=== PATIENT | female | born 1980 | race African-American/Black ===

== ENCOUNTER 2018-12-26 02:17 | Emergency (ER) | payer OTHER ==
[~2018-12-26] VITALS: Ht 165.1 cm; Wt 59.0 kg
[~2018-12-26 02:17] MED LIST: LABE200T28 PO
[2018-12-26 02:30] VITALS: BP_SYST 164
[2018-12-26] MEDS ORDERED: NACL 0.9% 1,000 ML IV ONE (03:15)
[2018-12-26] MEDS ORDERED: ENALAPRILAT DIHYDRATE 1.25 MG/ML VIAL IVP ONE (03:15)
[2018-12-26 05:15] VITALS: BP_SYST 149
== END 2018-12-26 05:15 | disposition home or self-care (01) ==
LOC: SED 02:17
DX: I10 Essential (primary) hypertension (principal); R51 Headache
CPT/HCPCS: 96374; 99283; J7030

== ENCOUNTER 2021-11-04 00:53 | Inpatient (IN) | payer MEDICAID, OTHER ==
[~2021-11-04] VITALS: Ht 165.1 cm; Wt 58.7 kg
[~2021-11-04 00:53] MED LIST changes: -LABE200T28 PO; +LABE200T6 PO
[2021-11-04 00:58] VITALS: BP_SYST 111
[2021-11-04 02:25] LABS: HEMATOCRIT 34.6 % (36-48); MEAN CORPUSCULAR HEMOGLOBIN 33 pg (27-31); MEAN CORPUSCULAR HGB CONC 35 % (32-36); MEAN CORPUSCULAR VOLUME 94 fL (79.0-98.0); PLATELET COUNT (AUTO) 176 K/uL (130-430); RED BLOOD CELL COUNT(AUTO) 3.67 MIL/uL (4.2-6.2); RED CELL DISTRIBUTION WIDTH 13.3 % (9.0-15.0); WHITE BLOOD COUNT (AUTO) 13.2 K/uL (4.8-10.8)
[2021-11-04] MEDS ORDERED: MORPHINE 4 MG INJ. 4 MG/ML VIAL IVP ONE (02:45)
[2021-11-04] MEDS ORDERED: ONDANSETRON HCL 4 MG/2 ML VIAL IVP ONE (02:45)
[2021-11-04 02:46] LABS: BILIRUBIN,URINE NEGATIVE (NEGATIVE); COLOR,URINE YELLOW (YELLOW); GLUCOSE,URINE NEGATIVE (NEGATIVE); KETONES,URINE 1+ (NEGATIVE); LEUKOCYTE ESTERASE ,URINE 1+ (NEGATIVE); NITRITE, URINE POSITIVE (NEGATIVE); PROTEIN URINE 2+ (NEGATIVE)
[2021-11-04 02:47] LABS: BLOOD, URINE TRACE (NEGATIVE); CLARITY/URINE HAZY (CLEAR)
[2021-11-04 03:00] LABS: WBC,URINE 20-50 /HPF (0-3)
[2021-11-04 03:01] LABS: BACTERIA,URINE MODERATE /HPF (None Seen)
[2021-11-04 03:05] LABS: HCG,QUAL RESULT NEGATIVE (NEGATIVE)
[2021-11-04 03:12] LABS: ALBUMIN 2.4 g/dL (3.4-4.8); CREATININE 0.79 mg/dL (0.55-1.30); TOTAL BILIRUBIN 0.6 mg/dL (0.0-1.0)
[2021-11-04 03:23] LABS: BASOPHILS % (AUTO) 0.3 % (0.0-2.0); EOSINOPHILS % (AUTO) 0.2 % (0.0-4.0); LYMPHOCYTES % (AUTO) 5.9 % (20.5-51.5); MONOCYTES % (AUTO) 17.5 % (1.7-9.3); NEUTROPHILS % (AUTO) 76.1 % (40.0-70.0)
[2021-11-04 03:24] LABS: LYMPHOCYTES # (AUTO) 0.8 K/uL (1.0-5.5); LYMPHOCYTES % (MANUAL) 3 % (20-46); MONOCYTES # (AUTO) 2.3 K/uL (0.0-1.0); MONOCYTES % (MANUAL) 15 % (0-11)
[2021-11-04 03:25] LABS: BASOPHILS % (MANUAL) 0 % (0-2); EOSINOPHILS % (MANUAL) 0 % (0-7)
[2021-11-04] MEDS ORDERED: cefTRIAXone 1 GM IVPB PREMIX 50 ML IV ONE (03:30)
[2021-11-04 03:46] LABS: CALCIUM 6.6 mg/dL (8.4-11.0)
[2021-11-04] MEDS ORDERED: CALCIUM GLUCONATE 2 GM in NS 100 ML IV ONE (04:00)
[2021-11-04] MEDS ORDERED: CALCIUM GLUCONATE 1 GM/10 ML VIAL ONE (04:13)
[2021-11-04] MEDS ORDERED: HALOPERIDOL LACTATE 5 MG/ML VIAL IVP ONE (04:15)
[2021-11-04 04:42] LABS: POTASSIUM 2.4 mmol/L (3.5-5.1)
[2021-11-04] MEDS ORDERED: POTASSIUM CHLORIDE 20 MEQ TAB.PRT.SR PO ONE ×2 (05:00)
[2021-11-04] MEDS ORDERED: KCL 20 mEq in 100 mL (PREMIX) 100 ML IV ONE (05:00)
[2021-11-04] MEDS ORDERED: MUPIROCIN 2% TOPICAL OINTMENT 22 GM NS PRN (08:00)
[2021-11-04] MEDS ORDERED: MORPHINE 2 MG/ML INJ. SYRINGE IVP PRN (08:00)
[2021-11-04] MEDS ORDERED: ONDANSETRON HCL 4 MG/2 ML VIAL IVP PRN (08:00)
[2021-11-04] MEDS ORDERED: LORazepam 2 MG/ML VIAL IVP PRN (08:00)
[2021-11-04] MEDS ORDERED: MAGNESIUM SULFATE 50 ML IV PRN (08:00)
[2021-11-04] MEDS ORDERED: ACETAMINOPHEN 325 MG TABLET PO PRN (08:00)
[2021-11-04] MEDS ORDERED: ZOLPIDEM TARTRATE 5 MG TABLET PO PRN (08:00)
[2021-11-04] MEDS ORDERED: DOCUSATE SODIUM 100 MG CAPSULE PO PRN (08:00)
[2021-11-04] MEDS ORDERED: POTASSIUM CHLORIDE 20 MEQ TAB.PRT.SR PO PRN (08:00)
[2021-11-04] MEDS: METOPROLOL TARTRATE 25 MG TABLET PO SCH ×2 (09:26→20:09)
[2021-11-04] MEDS: D5NS 1,000 ML IV SCH ×2 (09:27→16:08)
[2021-11-04 09:38] LABS: BARBITURATE, URINE NEGATIVE (NEG <=200); BENZODIAZEPINE, URINE NEGATIVE (NEG <=150); CANNABINOID, URINE POSITIVE (NEG <=50); COCAINE, URINE NEGATIVE (NEG <=150); METHAMPHETAMINES SCREEN,URINE NEGATIVE (NEG <=500); OPIATE, URINE POSITIVE (NEG <=100); PHENCYCLIDINE SCREEN,URINE NEGATIVE (NEG <=25); UR TRICYCLIC ANTIDEPRESSANTS NEGATIVE (NEG <=300); URINE AMPHETAMINE NEGATIVE (NEG <=500); URINE METHADONE NEGATIVE (NEG <=200); URINE OXYCODONE SCREEN NEGATIVE (NEG <=100); URINE PROPOXYPHENE SCREEN NEGATIVE (NEG <=300)
[2021-11-04 10:00] VITALS: BP_SYST 131
[2021-11-04] MEDS: MORPHINE 2 MG/ML INJ. SYRINGE IVP PRN ×2 (11:03→20:09)
[2021-11-04 12:00] VITALS: BP_SYST 126
[2021-11-04 16:00] VITALS: BP_SYST 133
[2021-11-04 20:00] VITALS: BP_SYST 149
[2021-11-05] VITALS: BP_SYST 143
[2021-11-05 00:02] VITALS: BP_SYST 143
[2021-11-05] MEDS: D5NS 1,000 ML IV SCH (05:45)
[2021-11-05 06:21] LABS: BASOPHILS % (AUTO) 0.3 % (0.0-2.0); EOSINOPHILS % (AUTO) 0.1 % (0.0-4.0); HEMATOCRIT 32.5 % (36-48); HEMOGLOBIN 11.1 g/dL (12.0-16.0); LYMPHOCYTES # (AUTO) 1.1 K/uL (1.0-5.5); LYMPHOCYTES % (AUTO) 9.4 % (20.5-51.5); MEAN CORPUSCULAR HEMOGLOBIN 33 pg (27-31); MEAN CORPUSCULAR HGB CONC 34 % (32-36); MEAN CORPUSCULAR VOLUME 95 fL (79.0-98.0); MONOCYTES # (AUTO) 2.5 K/uL (0.0-1.0); MONOCYTES % (AUTO) 20.5 % (1.7-9.3); NEUTROPHILS # (AUTO) 8.5 K/uL (1.8-7.7); PLATELET COUNT (AUTO) 150 K/uL (130-430); RED BLOOD CELL COUNT(AUTO) 3.42 MIL/uL (4.2-6.2); RED CELL DISTRIBUTION WIDTH 13.7 % (9.0-15.0); WHITE BLOOD COUNT (AUTO) 12.1 K/uL (4.8-10.8)
[2021-11-05 06:43] LABS: ANION GAP 8 (5-15); CHLORIDE 102 mmol/L (98-107); CREATININE 0.63 mg/dL (0.55-1.30); GLUCOSE 110 mg/dL (70-99); SODIUM SERUM 136 mmol/L (136-145); UREA NITROGEN, BLOOD 6 mg/dL (8-21)
[2021-11-05 07:43] LABS: GFR AFRICAN AMERICAN 135 mL/min (>90)
[2021-11-05 07:44] LABS: CALCIUM 6.4 mg/dL (8.4-11.0); POTASSIUM 2.6 mmol/L (3.5-5.1)
[2021-11-05 08:00] VITALS: BP_SYST 149
[2021-11-05] MEDS ORDERED: MAGN400T10 PO (08:00)
[2021-11-05] MEDS ORDERED: POTASSIUM CHLORIDE 20 MEQ TAB.PRT.SR PO ONE (08:00)
[2021-11-05] MEDS ORDERED: POTA-197 PO (08:00)
[2021-11-05] MEDS ORDERED: MAGNESIUM SULFATE 4 GM in D5W 250 ML IV ONE (08:00)
[2021-11-05] MEDS ORDERED: LEVO500T90 PO (08:00)
[2021-11-05] MEDS: METOPROLOL TARTRATE 25 MG TABLET PO SCH (08:35)
[2021-11-05] MEDS: MORPHINE 2 MG/ML INJ. SYRINGE IVP PRN (08:57)
[2021-11-05] MEDS ORDERED: CALCIUM CARBONATE 500 MG/ TAB.CHEW PO SCH (09:00)
[2021-11-05] MEDS ORDERED: CALC650T29 PO (10:21)
[2021-11-05 12:00] VITALS: BP_SYST 138
[2021-11-05 12:57] LABS: NEUTROPHILS % (AUTO) 69.7 % (40.0-70.0)
[2021-11-05 15:17] LABS: CREATININE 0.53 mg/dL (0.55-1.30)
[2021-11-05 15:35] LABS: CALCIUM 6.7 mg/dL (8.4-11.0); POTASSIUM 2.9 mmol/L (3.5-5.1)
[2021-11-05 16:00] VITALS: BP_SYST 142
[2021-11-05 16:30] VITALS: BP_SYST 132
== END 2021-11-05 17:10 | disposition home or self-care (01) | DRG 249 ==
LOC: SED 00:53 → SMU 07:58
PROVIDERS: ADMIT General Practice; ATTEND General Practice
DX: K52.9 Noninfective gastroenteritis and colitis, unspecified (principal); E44.0 Moderate protein-calorie malnutrition; E83.51 Hypocalcemia; E87.1 Hypo-osmolality and hyponatremia; N39.0 Urinary tract infection, site not specified; E87.6 Hypokalemia; Z20.822 Contact with and (suspected) exposure to COVID-19; I10 Essential (primary) hypertension; F17.210 Nicotine dependence, cigarettes, uncomplicated; F12.20 Cannabis dependence, uncomplicated; Z68.21 Body mass index [BMI] 21.0-21.9, adult; B96.20 Unspecified Escherichia coli [E. coli] as the cause of diseases classified elsewhere
CPT/HCPCS: 36415; 71045; 76376; 76856-TC; 80048; 80053; 80307; 81000; 83605; 83690; 83735; 84484; 84703; 85007; 85025; 85027; 87086; 93005; 96374; 96375; 99285; J0610; J0696; J1630; J2270; J2405; J3475; J3480; J7060

== ENCOUNTER 2022-06-27 16:42 | Emergency (ER) | payer MEDICAID ==
[~2022-06-27] VITALS: Ht 165.1 cm; Wt 54.4 kg
[2022-06-27 16:42] VITALS: BP_SYST 196
[~2022-06-27 16:42] MED LIST changes: +CALC650T29 PO; -LABE200T6 PO; +LABE200T9 PO; +LEVO-62 PO; +MAGN400T10 PO; +POTA-197 PO
--- NOTE | 2022-06-27 16:45 | NUR ---
BROUGHT IN BY [facility] AND TRIAGED. AWAITING ER BED AVAILABILITY
--- NOTE | 2022-06-27 17:00 | NUR ---
Dr. Valdez at bedside.
[2022-06-27 17:15] LABS: BASOPHILS % (AUTO) 0.5 % (0.0-2.0); EOSINOPHILS % (AUTO) 0.1 % (0.0-4.0); HEMATOCRIT 31.7 % (36-48); LYMPHOCYTES # (AUTO) 1.2 K/uL (1.0-5.5); LYMPHOCYTES % (AUTO) 22.8 % (20.5-51.5); MEAN CORPUSCULAR HEMOGLOBIN 33 pg (27-31); MEAN CORPUSCULAR HGB CONC 35 % (32-36); MEAN CORPUSCULAR VOLUME 94 fL (79.0-98.0); MONOCYTES # (AUTO) 0.6 K/uL (0.0-1.0); MONOCYTES % (AUTO) 11.1 % (1.7-9.3); NEUTROPHILS # (AUTO) 3.5 K/uL (1.8-7.7); NEUTROPHILS % (AUTO) 65.5 % (40.0-70.0); PLATELET COUNT (AUTO) 309 K/uL (130-430); RED BLOOD CELL COUNT(AUTO) 3.38 MIL/uL (4.2-6.2); WHITE BLOOD COUNT (AUTO) 5.4 K/uL (4.8-10.8)
--- NOTE | 2022-06-27 17:17 | NUR ---
Patient BIB ambulance from home. Chief Complaint Chest pain rated at 6/10. Patient a&o x4 states hx of HTN but does not take medicine nor check bps regularily. Patient placed in bed one on monitor and bed rails up. EMT at bedside performing EKG. Patient stable.
[2022-06-27] MEDS ORDERED: cloNIDine HCL 0.1 MG TABLET PO ONE (17:30)
[2022-06-27 17:31] LABS: ALANINE AMINOTRANSFERASE 59 U/L (12-78); ALBUMIN 3.3 g/dL (3.4-4.8); ASPARTATE AMINOTRANSFERASE 264 U/L (10-37); CALCIUM 8.1 mg/dL (8.4-11.0); CHLORIDE 93 mmol/L (98-107); CREATININE 0.89 mg/dL (0.55-1.30); GFR AFRICAN AMERICAN 90 mL/min (>90); GLUCOSE 177 mg/dL (70-99); TOTAL BILIRUBIN 0.5 mg/dL (0.0-1.0); UREA NITROGEN, BLOOD 9 mg/dL (8-21)
[2022-06-27 17:34] LABS: ANION GAP 14 (5-15)
[2022-06-27] MEDS ORDERED: POTASSIUM CHLORIDE 20 MEQ/PKT PACKET PO ONE ×2 (18:00→18:30)
--- NOTE | 2022-06-27 18:26 | NUR ---
CATAPRES 0.3MG PO GIVEN FOR SBP 196. KCL 40MEQ PO GIVEN FOR K+=2.7.
[2022-06-27] MEDS ORDERED: POTASSIUM CHLORIDE 40 MEQ in NS 250 ML IV ONE (18:30)
[2022-06-27] MEDS ORDERED: KCL 20 mEq in 100 mL (PREMIX) 100 ML IV ONE (18:45)
--- NOTE | 2022-06-27 19:08 | NUR ---
KCL IVPB 20 MEQ FIRST OF TWO AND KCL 40MEQ PO GIVEN FOR K+= 2.7.
--- NOTE | 2022-06-27 19:09 | NUR ---
DR. ISSA AT BEDSIDE TO ASSESS PT.
--- NOTE | 2022-06-27 19:21 | NUR ---
ENDORSED ALL CARE TO MIKE PATEL. ALL QUESTIONS AND CONCERNS ADDRESSED.
[2022-06-27] MEDS ORDERED: POTA-197 PO (20:02)
[2022-06-27] MEDS ORDERED: MAGN400T10 PO (20:02)
[2022-06-27] MEDS ORDERED: NAPR-1172 PO (20:02)
[2022-06-27] MEDS ORDERED: hydrALAZINE HCL 20 MG/ML VIAL IVP ONE (20:15)
[2022-06-27 21:01] VITALS: BP_SYST 142
== END 2022-06-27 21:01 | disposition home or self-care (01) ==
LOC: SED 16:42
DX: R07.9 Chest pain, unspecified (principal); R00.0 Tachycardia, unspecified; R05.9 Cough, unspecified; I10 Essential (primary) hypertension; Z79.899 Other long term (current) drug therapy
CPT/HCPCS: 99285; 96365; 71045; 80053; 85025; 84484; 36415; 93005; J3480; J7050

== ENCOUNTER 2022-08-15 22:47 | Emergency (ER) | payer MEDICAID ==
[~2022-08-15] VITALS: Ht 165.1 cm; Wt 54.4 kg
[~2022-08-15 22:47] MED LIST changes: +NAPR-1172 PO
[2022-08-15 23:00] VITALS: BP_SYST 95
--- NOTE | 2022-08-16 00:02 | NUR ---
Patient to ER bed 3 to gown for evaluation. Side rails up. Report given to RYAN MCKEON.
--- NOTE | 2022-08-16 00:12 | NUR ---
PATIENT BROUGHT IN COMPLAINING OF HYPOTENSION WITH WEAKNESS AND DIZZINESS. PAIN 4/10 HEAD.
--- NOTE | 2022-08-16 00:22 | NUR ---
# 22 gauge angiocath placed to RAC. Use of asceptic technique. Opsite placed over site. Blood return noted. Blood for lab drawn from site. Flushed with 10 cc of normal saline. No evidence of infiltration noted. Patient tolerated well.
[2022-08-16] MEDS ORDERED: MAG-AL HYDROX/SIMETH 30 ML UDC PO ONE (00:30)
[2022-08-16 00:36] LABS: BASOPHILS # (AUTO) 0.1 K/uL (0.0-0.2); EOSINOPHILS % (AUTO) 0.6 % (0.0-4.0); HEMATOCRIT 39.5 % (36-48); HEMOGLOBIN 13.3 g/dL (12.0-16.0); LYMPHOCYTES # (AUTO) 1.9 K/uL (1.0-5.5); LYMPHOCYTES % (AUTO) 31.1 % (20.5-51.5); MEAN CORPUSCULAR HEMOGLOBIN 34 pg (27-31); MEAN CORPUSCULAR HGB CONC 34 % (32-36); MEAN CORPUSCULAR VOLUME 100 fL (79.0-98.0); MONOCYTES # (AUTO) 0.6 K/uL (0.0-1.0); MONOCYTES % (AUTO) 9.3 % (1.7-9.3); NEUTROPHILS # (AUTO) 3.5 K/uL (1.8-7.7); PLATELET COUNT (AUTO) 254 K/uL (130-430); RED BLOOD CELL COUNT(AUTO) 3.94 MIL/uL (4.2-6.2); WHITE BLOOD COUNT (AUTO) 6.1 K/uL (4.8-10.8)
[2022-08-16 01:09] LABS: ALANINE AMINOTRANSFERASE 21 U/L (12-78); ALBUMIN 4.1 g/dL (3.4-4.8); ANION GAP 16 (5-15); ASPARTATE AMINOTRANSFERASE 31 U/L (10-37); CALCIUM 7.9 mg/dL (8.4-11.0); CHLORIDE 96 mmol/L (98-107); CREATININE 1.95 mg/dL (0.55-1.30); GFR AFRICAN AMERICAN 36 mL/min (>90); GLUCOSE 86 mg/dL (70-99); PHOSPHORUS 3.4 mg/dL (2.7-4.5); TOTAL BILIRUBIN 0.9 mg/dL (0.0-1.0); UREA NITROGEN, BLOOD 25 mg/dL (8-21)
[2022-08-16] MEDS ORDERED: POTASSIUM CHLORIDE 20 MEQ/PKT PACKET PO ONE (01:30)
[2022-08-16] MEDS ORDERED: MAGNESIUM SULFATE 50 ML IV ONE (01:30)
[2022-08-16] MEDS ORDERED: NACL 0.9% 1,000 ML IV ONE ×2 (01:30)
[2022-08-16] MEDS ORDERED: KCL 20 mEq in 100 mL (PREMIX) 100 ML IV ONE (01:30)
--- NOTE | 2022-08-16 02:08 | NUR ---
PATIENT AMBULATED TO RESTROOM. STEADY GAIT. NO ASSISTANCE REQUIRED AT THIS TIME
--- NOTE | 2022-08-16 02:16 | NUR ---
PATIENT RETURNED FROM RESTROOM. PLACED BACK ON CONSERVATION TECHNICIAN.
--- NOTE | 2022-08-16 03:20 | NUR ---
REPORT GIVEN MIKE BUSH FOR CONTINUATION OF CARE
--- NOTE | 2022-08-16 03:24 | NUR ---
Report received from MIKE Zapata for continuity of care. Patient in stable condition.
[2022-08-16] MEDS ORDERED: POTASSIUM CHLORIDE 20 MEQ TAB.PRT.SR PO ONE (03:30)
[2022-08-16 03:48] VITALS: BP_SYST 97
--- NOTE | 2022-08-16 04:07 | NUR ---
pATIENT TOOK MEDICATION ORDERED.
--- NOTE | 2022-08-16 06:23 | NUR ---
Patient given written and verbal discharge instructions and verbalizes understanding. ER MD discussed with patient the results and treatment provided. Patient in stable condition. ID arm band removed. IV catheter removed intact and dressing applied, no active bleeding. Patient educated on pain management and to follow up with PMD. Pain Scale . Opportunity for questions provided and answered. Medication side effect fact sheet provided.
== END 2022-08-16 06:22 | disposition home or self-care (01) ==
LOC: SED 22:47
DX: E86.0 Dehydration (principal); N17.9 Acute kidney failure, unspecified; E87.6 Hypokalemia; E83.42 Hypomagnesemia; I10 Essential (primary) hypertension; R42 Dizziness and giddiness; Z79.899 Other long term (current) drug therapy
CPT/HCPCS: 99284; 80053; 83735; 84100; 85025; 84484; 36415; 93005; 96365; 96361; 96366; J3475; J7030

== ENCOUNTER 2023-06-17 19:22 | Inpatient (IN) | payer MEDICAID ==
[~2023-06-17] VITALS: Ht 165.1 cm; Wt 52.2 kg
[2023-06-17 19:40] VITALS: BP_SYST 135; PULSE 129; RESP 20; TEMP 98.9; O2SAT 100
[2023-06-17 22:00] LABS: HEMATOCRIT 22.7 % (36-48); HEMOGLOBIN 7.9 g/dL (12.0-16.0); MEAN CORPUSCULAR HEMOGLOBIN 35 pg (27-31); MEAN CORPUSCULAR HGB CONC 35 % (32-36); MEAN CORPUSCULAR VOLUME 99 fL (79.0-98.0); RED BLOOD CELL COUNT(AUTO) 2.29 MIL/uL (4.2-6.2); RED CELL DISTRIBUTION WIDTH 14.6 % (9.0-15.0); WHITE BLOOD COUNT (AUTO) 4.8 K/uL (4.8-10.8)
[2023-06-17 22:07] LABS: ALBUMIN 3.6 g/dL (3.4-4.8); CALCIUM 7.4 mg/dL (8.4-11.0); CREATININE 0.81 mg/dL (0.55-1.30); TOTAL BILIRUBIN 0.4 mg/dL (0.0-1.0); TOTAL PROTEIN, SERUM 6.9 g/dL (6.4-8.3)
[2023-06-17 22:11] LABS: POTASSIUM 2.9 mmol/L (3.5-5.1)
[2023-06-17 22:13] LABS: PLATELET COUNT (AUTO) 44 K/uL (130-430)
[2023-06-17] MEDS: NACL 0.9% 1,000 ML IV ONE (22:16)
[2023-06-17 22:26] LABS: ANISOCYTOSIS 1+; BAND % (MANUAL) 0 % (0-6); BASOPHILS % (MANUAL) 0 % (0-2); EOSINOPHILS % (MANUAL) 0 % (0-7); LYMPHOCYTES % (MANUAL) 55 % (20-46); MONOCYTES % (MANUAL) 6 % (0-11); PLATELET ESTIMATE DECREASED (ADEQUATE); POLYCHROMASIA 1+
[2023-06-17 22:27] LABS: OVALOCYTES FEW; STOMATOCYTES MANY; TARGET CELLS MODERATE; TEAR DROP CELLS FEW
[2023-06-17] MEDS: MORPHINE 4 MG INJ. 4 MG/ML VIAL IVP ONE (23:32)
[2023-06-17] MEDS: KCL 20 mEq in 100 mL (PREMIX) 100 ML IV ONE (23:37)
[2023-06-18] VITALS (7 sets, daily range): BP systolic 151–165; PULSE 103–127; RESP 15–16; TEMP 98.4–99; O2SAT 98–100
[2023-06-18 00:10] LABS: BILIRUBIN,URINE NEGATIVE (NEGATIVE); BLOOD, URINE 1+ (NEGATIVE); COLOR,URINE YELLOW (YELLOW); GLUCOSE,URINE NEGATIVE (NEGATIVE); KETONES,URINE NEGATIVE (NEGATIVE); LEUKOCYTE ESTERASE ,URINE NEGATIVE (NEGATIVE); NITRITE, URINE NEGATIVE (NEGATIVE); PH,URINE 6.5 (5.0-8.0); PROTEIN URINE NEGATIVE (NEGATIVE); UROBILINOGEN,URINE 0.2 (0.2-1.0)
[2023-06-18] MEDS: NACL 0.9% 1,000 ML IV ONE (00:10)
[2023-06-18 00:45] LABS: CLARITY/URINE HAZY (CLEAR)
[2023-06-18 00:46] LABS: BACTERIA,URINE None Seen /HPF (None Seen); WBC,URINE 0-3 /HPF (0-3)
[2023-06-18] MEDS: metroNIDAZOLE 500 mg/NS 100 ML IV ONE (02:00)
[2023-06-18] MEDS: DIAZEPAM 10 MG/2 ML DISP.SYRIN IVP ONE (02:21)
[2023-06-18] MEDS: cefTRIAXone 1 GM IVPB PREMIX 50 ML IV ONE (03:09)
[2023-06-18] MEDS: LORazepam 2 MG/ML VIAL IVP ONE (03:09)
[2023-06-18] MEDS ORDERED: LOSA50TA28 PO (03:25)
[2023-06-18] MEDS ORDERED: AMLO5TAB92 PO (03:25)
[2023-06-18] MEDS ORDERED: ROSU20TA73 PO (03:25)
[2023-06-18 03:26] LABS: INR 1.2 (0.8-1.2); PROTHROMBIN TIME 11.9 SECS (9.5-12.5)
[2023-06-18] MEDS: D5/0.45 NS 1,000 ML IV ONE (05:16)
[2023-06-18] MEDS ORDERED: NALOXONE HCL 0.4 MG/ML AMP (NARCAN) IVP PRN ×2 (07:15)
[2023-06-18] MEDS: PANTOPRAZOLE SODIUM 40 MG/VIAL (PROTONIX) IVP SCH (08:59)
[2023-06-18] MEDS: hydrALAZINE HCL 20 MG/ML VIAL IVP PRN (09:00)
[2023-06-18] MEDS: HYDROcodone/ACETAMIN 10-325 MG TAB PO PRN (10:24)
[2023-06-18] MEDS ORDERED: LORazepam 2 MG/ML VIAL IVP PRN (11:45)
[2023-06-18] MEDS ORDERED: CALCIUM CARBONATE 650 MG TABLET PO SCH (11:45)
[2023-06-18] MEDS ORDERED: ONDANSETRON HCL 4 MG/2 ML VIAL IVP PRN (11:45)
[2023-06-18] MEDS: POTASSIUM CHLORIDE 20 MEQ TABLET.ER PO ONE (13:41)
[2023-06-18] MEDS: amLODIPine BESYLATE 5 MG TABLET PO ONE (13:43)
[2023-06-18] MEDS: CALCIUM 500 MG/TAB PO ONE (13:43)
[2023-06-18] MEDS: BISACODYL 5 MG TABLET.DR (DULCOLAX) PO ONE (18:45)
[2023-06-18] MEDS: CALCIUM 500 MG/TAB PO SCH (22:27)
[2023-06-18] MEDS: ATORVASTATIN 20 MG TABLET PO SCH (22:27)
[2023-06-18] MEDS: LOSARTAN POTASSIUM 50 MG TABLET (COZAAR) PO SCH (22:28)
[2023-06-18] MEDS: LABETALOL HCL 100 MG TABLET PO SCH (22:28)
[2023-06-18] MEDS: MAGNESIUM OXIDE 400 MG TABLET PO SCH (22:28)
[2023-06-19 00:48] VITALS: BP_SYST 113; PULSE 107; RESP 16; TEMP 98.6; O2SAT 100
[2023-06-19 05:31] LABS: BASOPHILS % (AUTO) 0.2 % (0.0-2.0); EOSINOPHILS % (AUTO) 0.5 % (0.0-4.0); LYMPHOCYTES # (AUTO) 1.7 K/uL (1.0-5.5); LYMPHOCYTES % (AUTO) 45.9 % (20.5-51.5); MEAN CORPUSCULAR HEMOGLOBIN 34 pg (27-31); MEAN CORPUSCULAR HGB CONC 34 % (32-36); MEAN CORPUSCULAR VOLUME 100 fL (79.0-98.0); MONOCYTES # (AUTO) 0.3 K/uL (0.0-1.0); MONOCYTES % (AUTO) 6.7 % (1.7-9.3); NEUTROPHILS # (AUTO) 1.8 K/uL (1.8-7.7); NEUTROPHILS % (AUTO) 46.7 % (40.0-70.0); RED BLOOD CELL COUNT(AUTO) 2.06 MIL/uL (4.2-6.2); RED CELL DISTRIBUTION WIDTH 14.6 % (9.0-15.0); WHITE BLOOD COUNT (AUTO) 3.8 K/uL (4.8-10.8)
[2023-06-19 05:55] LABS: ALANINE AMINOTRANSFERASE 11 U/L (12-78); ALBUMIN 3.1 g/dL (3.4-4.8); ANION GAP 16 (5-15); ASPARTATE AMINOTRANSFERASE 35 U/L (10-37); CARBON DIOXIDE 23 mmol/L (23-29); CHLORIDE 98 mmol/L (98-107); CREATININE 0.66 mg/dL (0.55-1.30); GFR AFRICAN AMERICAN 126 mL/min (>90); GLUCOSE 105 mg/dL (74-106); PHOSPHORUS 4.4 mg/dL (2.7-4.5); SODIUM SERUM 137 mmol/L (136-145); TOTAL BILIRUBIN 0.8 mg/dL (0.0-1.0); TOTAL PROTEIN, SERUM 5.9 g/dL (6.4-8.3); UREA NITROGEN, BLOOD 3 mg/dL (8-21)
[2023-06-19 06:05] LABS: HEMATOCRIT 20.5 % (36-48)
[2023-06-19 06:06] LABS: PLATELET COUNT (AUTO) 36 K/uL (130-430)
[2023-06-19 06:31] LABS: GFR NON AFRICAN-AMERICAN 104 mL/min (>90)
[2023-06-19 06:34] LABS: CALCIUM 6.6 mg/dL (8.4-11.0); POTASSIUM 2.5 mmol/L (3.5-5.1)
[2023-06-19] MEDS ORDERED: CALCIUM GLUCONATE 1 GM/10 ML VIAL IVP ONE (07:00)
[2023-06-19 07:47] VITALS: BP_SYST 113; PULSE 107; RESP 16; TEMP 97.6; O2SAT 99
[2023-06-19 08:00] VITALS: O2SAT 95
[2023-06-19] MEDS: amLODIPine BESYLATE 5 MG TABLET PO SCH (08:26)
[2023-06-19] MEDS: POTASSIUM CHLORIDE 20 MEQ TABLET.ER PO SCH (08:26)
[2023-06-19] MEDS: CALCIUM GLUC 2 GM/100ML-NACL 100 ML IV ONE (08:38)
[2023-06-19] MEDS: MAGNESIUM SULFATE 50 ML IV ONE (09:52)
[2023-06-19] MEDS: POTASSIUM CHLORIDE 40 MEQ in NS 250 ML IV ONE (10:56)
[2023-06-19 11:51] VITALS: BP_SYST 136; PULSE 102; RESP 16; TEMP 98.6; O2SAT 100
[2023-06-19] MEDS: SIMETHICONE 40 MG/0.6 ML ML ONE (15:16)
[2023-06-19] MEDS: MEPERIDINE 100 MG INJ. 100 MG/ML VIAL ONE (15:21)
[2023-06-19] MEDS: MIDAZOLAM HCL 5 MG/5 ML VIAL ONE (15:21)
[2023-06-19] MEDS: DIPHENHYDRAMINE INJ 50 MG/ML VIAL ONE (15:29)
[2023-06-19 16:25] VITALS: BP_SYST 139; PULSE 100; RESP 16; TEMP 97.5; O2SAT 100
[2023-06-19] MEDS: ACETAMINOPHEN 325 MG TABLET PO PRN (17:37)
[2023-06-19 20:38] VITALS: BP_SYST 112; PULSE 119; RESP 16; TEMP 99.5; O2SAT 99
[2023-06-19] MEDS: HYDROcodone/ACETAMIN 5-325 MG TAB (NORCO/ VICODIN) PO PRN (21:43)
[2023-06-20 00:15] VITALS: BP_SYST 104; PULSE 97; RESP 16; TEMP 98.7; O2SAT 99
[2023-06-20 04:03] LABS: BASOPHILS % (AUTO) 0.4 % (0.0-2.0); EOSINOPHILS % (AUTO) 0.4 % (0.0-4.0); HEMATOCRIT 22.1 % (36-48); HEMOGLOBIN 7.5 g/dL (12.0-16.0); LYMPHOCYTES # (AUTO) 2.1 K/uL (1.0-5.5); LYMPHOCYTES % (AUTO) 47.7 % (20.5-51.5); MEAN CORPUSCULAR HEMOGLOBIN 34 pg (27-31); MEAN CORPUSCULAR HGB CONC 34 % (32-36); MEAN CORPUSCULAR VOLUME 100 fL (79.0-98.0); MONOCYTES # (AUTO) 0.2 K/uL (0.0-1.0); MONOCYTES % (AUTO) 5.7 % (1.7-9.3); NEUTROPHILS % (AUTO) 45.8 % (40.0-70.0); RED BLOOD CELL COUNT(AUTO) 2.21 MIL/uL (4.2-6.2); RED CELL DISTRIBUTION WIDTH 14.7 % (9.0-15.0); WHITE BLOOD COUNT (AUTO) 4.4 K/uL (4.8-10.8)
[2023-06-20 04:04] VITALS: BP_SYST 107; PULSE 185; RESP 20; TEMP 99; O2SAT 99
[2023-06-20] MEDS: ADENOSINE 6MG/2ML VIAL ONE (04:07)
[2023-06-20] MEDS: dilTIAZem HCL IVP 5 MG/ML VIAL ONE (04:08)
[2023-06-20] MEDS: POTASSIUM CHLORIDE 20 MEQ/PKT PACKET ONE (04:10)
[2023-06-20 04:11] LABS: CALCIUM 7.5 mg/dL (8.4-11.0); CREATININE 0.83 mg/dL (0.55-1.30)
[2023-06-20] MEDS: NS 500 ML IV ONE (04:11)
[2023-06-20 04:12] LABS: PLATELET COUNT (AUTO) 48 K/uL (130-430)
[2023-06-20] MEDS: MAGNESIUM SULFATE/D5W 100 ML IV ONE (04:12)
[2023-06-20] MEDS: NACL 0.9% 1,000 ML IV SCH (04:14)
[2023-06-20 05:14] VITALS: BP_SYST 110; PULSE 99; RESP 16; TEMP 98; O2SAT 98
[2023-06-20] MEDS: KCL 40mEq in D5/0.45NS 1000 mL 1,000 ML IV SCH (06:47)
[2023-06-20 07:15] LABS: ALBUMIN 3.3 g/dL (3.4-4.8); BILIRUBIN,DIRECT 0.2 mg/dL (0.0-0.3); TOTAL BILIRUBIN 0.7 mg/dL (0.0-1.0); TOTAL PROTEIN, SERUM 6.2 g/dL (6.4-8.3)
[2023-06-20] MEDS: POTASSIUM CHLORIDE 20 MEQ/PKT PACKET PO ONE (08:08)
[2023-06-20 08:26] VITALS: BP_SYST 125; PULSE 102; RESP 16; TEMP 98; O2SAT 99
[2023-06-20] MEDS: MAGNESIUM SULFATE 1 GM in NS 100 ML IV ONE (08:30)
[2023-06-20 12:00] VITALS: BP_SYST 108; PULSE 104; RESP 17; TEMP 98.1; O2SAT 100
[2023-06-20 15:52] VITALS: BP_SYST 102; PULSE 102; RESP 16; TEMP 98; O2SAT 100
[2023-06-21] MEDS ORDERED: THIAMINE HCL 100 MG TABLET PO SCH (09:00)
[2023-06-21] MEDS ORDERED: FOLIC ACID 1 MG TABLET PO SCH (09:00)
== END 2023-06-20 18:40 | disposition left against medical advice (07) | DRG 253 ==
LOC: SED 19:22 → STU 06-18 02:13
PROVIDERS: ADMIT Preventive Medicine Preventive Medicine/Occupational Environmental Medicine; ATTEND Preventive Medicine Preventive Medicine/Occupational Environmental Medicine
PROC: 0DBN8ZX Excision of Sigmoid Colon, Via Natural or Artificial Opening Endoscopic, Diagnostic (ICD-10-PCS; principal; 2023-06-19 14:00)
DX: K92.2 Gastrointestinal hemorrhage, unspecified (principal); D61.818 Other pancytopenia; E87.0 Hyperosmolality and hypernatremia; E44.0 Moderate protein-calorie malnutrition; E83.51 Hypocalcemia; D50.0 Iron deficiency anemia secondary to blood loss (chronic); F17.210 Nicotine dependence, cigarettes, uncomplicated; E87.20 Acidosis, unspecified; K70.30 Alcoholic cirrhosis of liver without ascites; E83.52 Hypercalcemia; E83.42 Hypomagnesemia; K64.8 Other hemorrhoids; E87.6 Hypokalemia; I10 Essential (primary) hypertension; K63.5 Polyp of colon; K76.9 Liver disease, unspecified; Z80.0 Family history of malignant neoplasm of digestive organs; Z68.1 Body mass index [BMI] 19.9 or less, adult; Z79.899 Other long term (current) drug therapy; Z98.891 History of uterine scar from previous surgery; Z53.29 Procedure and treatment not carried out because of patient's decision for other reasons
CPT/HCPCS: 36415; 45380; 72191; 74175; 80048; 80053; 80076; 81000; 81001; 81015; 82948; 83605; 83690; 83735; 84100; 85007; 85025; 85027; 85610; 85730; 86886; 86900; 86901; 86920; 87040; 88305; 93005; 93306; 97116-GP; 97530-GP; 99285; C9113; G0378; J0153; J0360; J0696; J1200; J2060; J2175; J2250; J2270; J3475; J3480; J3490; J7050; Q9967

== ENCOUNTER 2024-01-07 18:35 | Emergency (ER) | payer MEDICAID ==
[~2024-01-07] VITALS: Ht 165.1 cm; Wt 52.2 kg
[~2024-01-07 18:35] MED LIST changes: +AMLO5TAB92 PO; -CALC650T29 PO; -LABE200T9 PO; -LEVO-62 PO; +LOSA50TA28 PO; -MAGN400T10 PO; -NAPR-1172 PO; -POTA-197 PO
[2024-01-07 18:45] VITALS: BP_SYST 130; PULSE 106; RESP 18; TEMP 97.2; O2SAT 100
[2024-01-07] MEDS ORDERED: FAMOTIDINE PF 20 MG/2 ML VIAL IVP ONE (19:15)
[2024-01-07] MEDS ORDERED: MORPHINE 4 MG INJ. 4 MG/ML VIAL IVP ONE (19:15)
[2024-01-07 19:51] LABS: BASOPHILS % (AUTO) 0.9 % (0.0-2.0); EOSINOPHILS % (AUTO) 0.3 % (0.0-4.0); HEMATOCRIT 30.7 % (36-48); HEMOGLOBIN 10.4 g/dL (12.0-16.0); LYMPHOCYTES # (AUTO) 1.2 K/uL (1.0-5.5); LYMPHOCYTES % (AUTO) 24.3 % (20.5-51.5); MEAN CORPUSCULAR HEMOGLOBIN 33 pg (27-31); MEAN CORPUSCULAR HGB CONC 34 % (32-36); MEAN CORPUSCULAR VOLUME 98 fL (79.0-98.0); MONOCYTES # (AUTO) 0.6 K/uL (0.0-1.0); MONOCYTES % (AUTO) 12.5 % (1.7-9.3); PLATELET COUNT (AUTO) 163 K/uL (130-430); RED BLOOD CELL COUNT(AUTO) 3.14 MIL/uL (4.2-6.2); RED CELL DISTRIBUTION WIDTH 15.5 % (9.0-15.0); WHITE BLOOD COUNT (AUTO) 4.8 K/uL (4.8-10.8)
[2024-01-07 20:09] LABS: ALBUMIN 4.3 g/dL (3.4-4.8); BILIRUBIN,DIRECT 0.3 mg/dL (0.0-0.3); CREATININE 1.02 mg/dL (0.55-1.30); TOTAL BILIRUBIN 0.6 mg/dL (0.0-1.0); TOTAL PROTEIN, SERUM 7.8 g/dL (6.4-8.3)
[2024-01-07 20:14] LABS: POTASSIUM 2.3 mmol/L (3.5-5.1)
[2024-01-07] MEDS: NACL 0.9% 1,000 ML IV ONE (21:00)
[2024-01-07] MEDS: POTASSIUM CHLORIDE 20 MEQ/PKT PACKET PO ONE (21:40)
[2024-01-07] MEDS: MORPHINE 4 MG INJ. 4 MG/ML VIAL IVP ONE (21:46)
[2024-01-07] MEDS: FAMOTIDINE PF 20 MG/2 ML VIAL IVP ONE (21:49)
[2024-01-07] MEDS ORDERED: FAMO40TA7 PO (23:28)
[2024-01-07 23:43] VITALS: BP_SYST 151; PULSE 109; RESP 20; TEMP 97.8; O2SAT 100
== END 2024-01-07 23:43 | disposition home or self-care (01) ==
LOC: SED 18:35
DX: R10.13 Epigastric pain (principal); R19.7 Diarrhea, unspecified; R11.10 Vomiting, unspecified; F17.200 Nicotine dependence, unspecified, uncomplicated; F10.90 Alcohol use, unspecified, uncomplicated; I10 Essential (primary) hypertension; Z79.899 Other long term (current) drug therapy; Y90.6 Blood alcohol level of 120-199 mg/100 ml
CPT/HCPCS: 99284; 96374; 96361; 96375; 80076; 80048; 83690; 85025; 36415; 81025; G0482; J3490; J2270; J7030

== ENCOUNTER 2024-01-19 23:05 | Emergency (ER) | payer MEDICAID ==
[~2024-01-19] VITALS: Ht 162.6 cm; Wt 52.2 kg
[~2024-01-19 23:05] MED LIST changes: +FAMO40TA7 PO
[2024-01-19 23:18] VITALS: BP_SYST 117; PULSE 110; RESP 16; TEMP 96.9; O2SAT 100
[2024-01-20 03:51] LABS: BASOPHILS % (AUTO) 0.6 % (0.0-2.0); EOSINOPHILS % (AUTO) 0.7 % (0.0-4.0); HEMATOCRIT 29.8 % (36-48); HEMOGLOBIN 9.9 g/dL (12.0-16.0); LYMPHOCYTES # (AUTO) 1.6 K/uL (1.0-5.5); LYMPHOCYTES % (AUTO) 34.2 % (20.5-51.5); MEAN CORPUSCULAR HEMOGLOBIN 32 pg (27-31); MEAN CORPUSCULAR HGB CONC 33 % (32-36); MEAN CORPUSCULAR VOLUME 96 fL (79.0-98.0); MONOCYTES # (AUTO) 0.5 K/uL (0.0-1.0); MONOCYTES % (AUTO) 11.2 % (1.7-9.3); NEUTROPHILS # (AUTO) 2.5 K/uL (1.8-7.7); NEUTROPHILS % (AUTO) 53.3 % (40.0-70.0); PLATELET COUNT (AUTO) 292 K/uL (130-430); RED BLOOD CELL COUNT(AUTO) 3.09 MIL/uL (4.2-6.2); RED CELL DISTRIBUTION WIDTH 15.6 % (9.0-15.0); WHITE BLOOD COUNT (AUTO) 4.7 K/uL (4.8-10.8)
[2024-01-20 04:15] LABS: ANION GAP 9 (5-15); CARBON DIOXIDE 33 mmol/L (23-29); CHLORIDE 104 mmol/L (98-107); CREATININE 0.71 mg/dL (0.55-1.30); GFR AFRICAN AMERICAN 116 mL/min (>90); GLUCOSE 92 mg/dL (74-106); SODIUM SERUM 146 mmol/L (136-145); UREA NITROGEN, BLOOD 6 mg/dL (8-21)
[2024-01-20 04:18] LABS: GFR NON AFRICAN-AMERICAN 96 mL/min (>90)
[2024-01-20 04:19] LABS: CALCIUM 6.7 mg/dL (8.4-11.0); POTASSIUM 2.6 mmol/L (3.5-5.1)
[2024-01-20] MEDS ORDERED: CALCIUM GLUCONATE 1 GM/10 ML VIAL ONE (04:43)
[2024-01-20] MEDS: POTASSIUM CHLORIDE 20 MEQ TABLET.ER PO ONE (05:19)
[2024-01-20] MEDS: CALCIUM GLUCONATE 1 GM in NS 100 ML IV ONE (05:19)
[2024-01-20] MEDS ORDERED: CALC200T56 PO (05:56)
[2024-01-20] MEDS ORDERED: POTA-197 PO (05:56)
[2024-01-20 06:50] VITALS: BP_SYST 111; PULSE 65; RESP 16; TEMP 97; O2SAT 99
== END 2024-01-20 06:50 | disposition home or self-care (01) ==
LOC: SED 23:05
DX: E72.09 Other disorders of amino-acid transport (principal); M79.605 Pain in left leg; M79.604 Pain in right leg; F17.200 Nicotine dependence, unspecified, uncomplicated; I10 Essential (primary) hypertension; Z79.899 Other long term (current) drug therapy; R20.0 Anesthesia of skin
CPT/HCPCS: 99285; 80048; 85025; 84484; 36415; 96365; 93923; J0612